=== PATIENT | female | born 1955 ===

== ENCOUNTER → 2018-07-26 | Outpatient (CLI) | payer MEDICARE ==
[2018-07-26 12:49] LABS: BASO % 1 % (0-3); EOS # 0.1 x10^3/uL (0.0-0.7); EOS % 1 % (0-3); HEMATOCRIT 35.7 % (36.0-47.0); HEMOGLOBIN 11.7 g/dL (12.0-15.5); LYMPH # 0.7 x10^3/uL (1.0-4.8); LYMPH % 9 % (24-48); MEAN CORPUSCULAR HEMOGLOBIN 30 pg (25-35); MEAN CORPUSCULAR HGB CONC 33 g/dL (31-37); MEAN CORPUSCULAR VOLUME 92 fL (79-100); MONO # 0.4 x10^3/uL (0.0-1.1); MONO % 5 % (0-9); NEUT # 6.4 x10^3uL (1.8-7.7); NEUT % 84 % (31-73); PLATELET COUNT 237 x10^3/uL (140-400); RED BLOOD COUNT 3.86 x10^6/uL (3.50-5.40); RED CELL DISTRIBUTION WIDTH 17.5 % (11.5-14.5); WHITE BLOOD COUNT 7.6 x10^3/uL (4.0-11.0)
[2018-07-26 13:16] LABS: FREE T4 0.86 ng/dL (0.76-1.46); THYROID STIM HORMONE (TSH) 1.447 uIU/mL (0.358-3.74)
[2018-07-26 13:17] LABS: ALBUMIN/GLOBULIN RATIO 0.8 (1.0-1.7); CREATININE 0.4 mg/dL (0.6-1.0); GFR 160.7; POTASSIUM 4.7 mmol/L (3.5-5.1); TOTAL BILIRUBIN 0.3 mg/dL (0.2-1.0); TOTAL PROTEIN 6.8 g/dL (6.4-8.2)
== END | disposition home or self-care (01) ==
LOC: SPEC 12:27
PROVIDERS: ATTEND Internal Medicine
DX: I11.0 Hypertensive heart disease with heart failure (principal); I50.9 Heart failure, unspecified
CPT/HCPCS: 36415; 80053; 82728; 83540; 83550; 84439; 84443; 85025